=== PATIENT | male | born 2005 | race Caucasian/White ===

== ENCOUNTER 2024-03-03 22:38 | Emergency (ER) | payer BC, OTHER ==
[~2024-03-03] VITALS: Ht 170.2 cm; Wt 63.5 kg
[~2024-03-03 22:38] MED LIST: ALBU17AE26 IH
[2024-03-03 22:54] VITALS: BP_SYST 141; PULSE 86; RESP 18; TEMP 97.6; O2SAT 98
== END 2024-03-04 00:28 | disposition home or self-care (01) ==
LOC: SED 22:38
DX: S90.111A Contusion of right great toe without damage to nail, initial encounter (principal); W21.89XA Striking against or struck by other sports equipment, initial encounter; Y93.71 Activity, boxing; Y92.39 Other specified sports and athletic area as the place of occurrence of the external cause; Y99.8 Other external cause status
CPT/HCPCS: 99283